=== PATIENT | male | born 2005 | race African-American/Black ===

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

== ENCOUNTER 2023-01-28 07:46 | Emergency (ER) | payer OTHER ==
[~2023-01-28] VITALS: Ht 185.4 cm; Wt 93.9 kg
[2023-01-28 09:27] LABS: BASO # 0.1 10^3/uL (0.0-0.2); BASO % 1.2 % (0.0-1.0); EOS # 0.1 10^3/uL (0.0-0.5); EOS % 2.7 % (0.0-3.0); HEMATOCRIT 43.4 % (42.0-52.0); HEMOGLOBIN 14.4 g/dl (13.5-17.5); LYMPH # 2.3 10^3/uL (1.5-5.0); LYMPH % 47.5 % (24.0-44.0); MEAN CORPUSCULAR HEMOGLOBIN 29.9 pg (27.0-33.0); MEAN CORPUSCULAR HGB CONC 33.2 g/dl (32.0-36.5); MEAN CORPUSCULAR VOLUME 90.2 fl (80.0-96.0); MONO # 0.6 10^3/uL (0.0-0.8); MONO % 11.6 % (2.0-8.0); NEUTROPHILS # 1.8 10^3/uL (1.5-8.5); NEUTROPHILS % 36.2 % (36.0-66.0); PLATELET COUNT, AUTOMATED 237 10^3/uL (150-450); RED BLOOD COUNT 4.81 10^6/uL (4.30-6.10); WHITE BLOOD COUNT 4.8 10^3/uL (4.0-10.0)
[2023-01-28 09:33] LABS: MONO SCRN NEGATIVE (NEGATIVE)
[2023-01-28] MEDS ORDERED: CEPH500C PO (09:59)
[2023-01-28] MEDS ORDERED: CEPHALEXIN 500 MG CAP PO ONE (10:00)
[2023-01-28 10:15] VITALS: BP 156/82
== END 2023-01-28 10:26 | disposition home or self-care (01) ==
LOC: M ED 07:46
DX: J02.9 Acute pharyngitis, unspecified (principal)

== ENCOUNTER 2023-02-23 08:19 | Emergency (ER) | payer OTHER ==
[~2023-02-23] VITALS: Ht 182.9 cm; Wt 92.7 kg
[~2023-02-23 08:19] MED LIST: CEPH500C PO
[2023-02-23 08:21] VITALS: BP 120/77; TEMP 97.8; O2SAT 98
== END 2023-02-23 09:17 | disposition left against medical advice (07) ==
LOC: M ED 08:19
DX: Z53.21 Procedure and treatment not carried out due to patient leaving prior to being seen by health care provider (principal)

== ENCOUNTER 2023-02-24 07:18 | Emergency (ER) | payer OTHER ==
[~2023-02-24] VITALS: Ht 185.4 cm; Wt 91.4 kg
[2023-02-24] MEDS ORDERED: IBUPROFEN 800 MG TAB PO ONE (08:15)
[2023-02-24 11:28] VITALS: BP 156/81; TEMP 97.9; O2SAT 96
== END 2023-02-24 11:28 | disposition home or self-care (01) ==
LOC: M ED 07:18
DX: T07.XXXA Unspecified multiple injuries, initial encounter (principal); Y04.0XXA Assault by unarmed brawl or fight, initial encounter; Y92.89 Other specified places as the place of occurrence of the external cause; Y93.89 Activity, other specified; Y99.8 Other external cause status; M27.2 Inflammatory conditions of jaws; R07.9 Chest pain, unspecified

== ENCOUNTER 2023-03-16 11:42 | Emergency (ER) | payer OTHER ==
[~2023-03-16] VITALS: Ht 185.4 cm; Wt 92.1 kg
[2023-03-16 11:42] VITALS: BP 124/58; TEMP 98; O2SAT 96
[2023-03-16 13:21] LABS: RSV AMPLIFICATION NEGATIVE (NEGATIVE)
[2023-03-16] MEDS ORDERED: IBUPROFEN 800 MG TAB PO ONE (13:50)
[2023-03-16] MEDS ORDERED: BENZ1LOZ9 PO (13:51)
[2023-03-16] MEDS ORDERED: FLUT50SP17 (13:51)
== END 2023-03-16 13:59 | disposition home or self-care (01) ==
LOC: M ED 11:42
DX: J06.9 Acute upper respiratory infection, unspecified (principal); J02.9 Acute pharyngitis, unspecified; Z79.899 Other long term (current) drug therapy

== ENCOUNTER 2023-03-31 06:43 | Emergency (ER) | payer OTHER ==
[~2023-03-31] VITALS: Ht 185.4 cm; Wt 89.1 kg
[2023-03-31 06:43] VITALS: BP 137/82; TEMP 96.6; O2SAT 99
[~2023-03-31 06:43] MED LIST changes: +BENZ1LOZ9 PO; +FLUT50SP17
[2023-03-31] MEDS ORDERED: VALA1TAB5 PO (07:26)
[2023-03-31] MEDS ORDERED: BACI500O59 TOP (07:40)
[2023-03-31 09:40] LABS: GC DNA AMPLIFICATION NEGATIVE (NEGATIVE)
== END 2023-03-31 07:42 | disposition home or self-care (01) ==
LOC: M ED 06:43
DX: N48.5 Ulcer of penis (principal); Z79.899 Other long term (current) drug therapy

== ENCOUNTER 2023-05-11 07:44 | Emergency (ER) | payer OTHER ==
[~2023-05-11] VITALS: Ht 185.4 cm; Wt 92.0 kg
[~2023-05-11 07:44] MED LIST changes: +BACI500O59 TOP; +VALA1TAB5 PO
[2023-05-11] MEDS ORDERED: NS 1,000 ML IV ONE (08:30)
[2023-05-11] MEDS ORDERED: dexAMETHasone 20MG/5ML VIAL IV ONE (08:30)
[2023-05-11] MEDS ORDERED: CLINDAMYCIN 900 MG in IV 1 EA IV ONE (08:30)
[2023-05-11 09:11] LABS: BASO % 1.2 % (0.0-1.0); EOS # 0.3 10^3/uL (0.0-0.5); EOS % 4.8 % (0.0-3.0); HEMATOCRIT 41.6 % (42.0-52.0); HEMOGLOBIN 13.7 g/dl (13.5-17.5); LYMPH # 1.9 10^3/uL (1.5-5.0); LYMPH % 31.8 % (24.0-44.0); MEAN CORPUSCULAR HEMOGLOBIN 29.9 pg (27.0-33.0); MEAN CORPUSCULAR HGB CONC 32.9 g/dl (32.0-36.5); MEAN CORPUSCULAR VOLUME 90.8 fl (80.0-96.0); MONO # 0.8 10^3/uL (0.0-0.8); MONO % 12.9 % (2.0-8.0); PLATELET COUNT, AUTOMATED 239 10^3/uL (150-450); RED BLOOD COUNT 4.58 10^6/uL (4.30-6.10); WHITE BLOOD COUNT 6.1 10^3/uL (4.0-10.0)
[2023-05-11 09:12] LABS: BASO # 0.1 10^3/uL (0.0-0.2)
[2023-05-11 09:24] LABS: RSV AMPLIFICATION NEGATIVE (NEGATIVE)
[2023-05-11 09:29] LABS: ERYTHROCYTE SEDIMENTATION RATE 26 mm/hr (0-15)
[2023-05-11] MEDS ORDERED: ISOVUE-370 76% 100ML VIAL As Ordered ONE (09:43)
[2023-05-11 09:46] LABS: MONO REFLEX EBV COMP NEGATIVE (NEGATIVE)
[2023-05-11 10:40] VITALS: TEMP 97.2
[2023-05-11 11:31] VITALS: O2SAT 99
[2023-05-11] MEDS ORDERED: CLEO150C PO (11:31)
[2023-05-11] MEDS ORDERED: CLEO300C2 PO (11:31)
[2023-05-11] MEDS ORDERED: PRED20TA PO (11:31)
[2023-05-11 11:46] VITALS: BP 109/64
[2023-05-12 13:07] LABS: EBV AB TO NUCLEAR ANTIGEN >600.0 U/mL (0.0-17.9); EBV VIRAL CAPSID AG IgM <36.0 U/mL (0.0-35.9)
== END 2023-05-11 12:01 | disposition home or self-care (01) ==
LOC: M ED 07:44
DX: J02.0 Streptococcal pharyngitis (principal); R59.9 Enlarged lymph nodes, unspecified; Z79.52 Long term (current) use of systemic steroids; Z79.1 Long term (current) use of non-steroidal anti-inflammatories (NSAID)
CPT/HCPCS: 70491; 71046; 80047; 85025; 85652; 86140; 86308; 86664; 86665; 87631; 87880; 93041; 94760; 96365; 96375; 99285; J0737; J1100; Q9967

== ENCOUNTER 2023-05-17 10:49 | Observation (INO) | payer OTHER ==
[~2023-05-17] VITALS: Ht 185.4 cm; Wt 93.6 kg
[~2023-05-17 10:49] MED LIST changes: +CLEO150C PO; +CLEO300C2 PO; +PRED20TA PO
[2023-05-17] MEDS ORDERED: dexAMETHasone 20MG/5ML VIAL IV ONE (13:30)
[2023-05-17] MEDS ORDERED: AMPICILLIN SOD/SULBACTAM SOD 3 GM in D5W MINI-BAG PLUS 100 ML IV ONE (13:30)
[2023-05-17 13:54] LABS: BASO # 0.1 10^3/uL (0.0-0.2); BASO % 1.5 % (0.0-1.0); EOS # 0.2 10^3/uL (0.0-0.5); EOS % 3.3 % (0.0-3.0); HEMATOCRIT 45.8 % (42.0-52.0); HEMOGLOBIN 15.1 g/dl (13.5-17.5); LYMPH # 1.9 10^3/uL (1.5-5.0); LYMPH % 36.3 % (24.0-44.0); MEAN CORPUSCULAR HEMOGLOBIN 30.1 pg (27.0-33.0); MEAN CORPUSCULAR VOLUME 91.4 fl (80.0-96.0); MONO # 0.4 10^3/uL (0.0-0.8); MONO % 7.9 % (2.0-8.0); NEUTROPHILS # 2.5 10^3/uL (1.5-8.5); NEUTROPHILS % 49.1 % (36.0-66.0); PLATELET COUNT, AUTOMATED 337 10^3/uL (150-450); RED BLOOD COUNT 5.01 10^6/uL (4.30-6.10); WHITE BLOOD COUNT 5.2 10^3/uL (4.0-10.0)
[2023-05-17 14:20] LABS: C REACTIVE PROTEIN QUANTITATIV < 0.40 MG/DL (<1.0)
[2023-05-17 14:21] LABS: BLOOD UREA NITROGEN 10 MG/DL (9-23); CARBON DIOXIDE LEVEL 29 MMOL/L (20-31); CHLORIDE LEVEL 104 MMOL/L (98-107); CREATININE FOR GFR 0.99 MG/DL (0.70-1.30); GLUCOSE, FASTING 80 MG/DL (60-100); POTASSIUM SERUM 4.2 MMOL/L (3.5-5.1); SODIUM LEVEL 140 MMOL/L (136-145)
[2023-05-17 14:49] LABS: ERYTHROCYTE SEDIMENTATION RATE 24 mm/hr (0-15)
[2023-05-17] MEDS ORDERED: CEPACOL LOZENGE PO PRN (16:15)
[2023-05-17] MEDS ORDERED: CHLORASEPTIC SPRAY MT PRN (16:15)
[2023-05-17] MEDS ORDERED: NS 1,000 ML IV ONE (16:15)
[2023-05-17] MEDS ORDERED: ACETAMINOPHEN TAB 650MG DOSE (2X325MG) PO PRN (16:15)
[2023-05-17] MEDS ORDERED: NORCO, ANEXSIA 5/325MG TABLET (HYDROcodone/ACETAMINOPHEN) PO PRN (16:15)
[2023-05-17] MEDS: KETOROLAC 30 MG/ML 1ML VIAL IV SCH ×2 (16:32→21:56)
[2023-05-17 16:54] LABS: RSV AMPLIFICATION NEGATIVE (NEGATIVE)
[2023-05-17] MEDS ORDERED: MED REC IN PROGRESS XX SCH (17:20)
[2023-05-17 17:25] VITALS: BP 103/76; TEMP 97.7; O2SAT 99
[2023-05-17] MEDS: LACTOBACILLUS ACIDOPHILUS CAP (BACID) PO SCH ×2 (18:12→21:56)
[2023-05-17] MEDS: NS 1,000 ML IV SCH ×2 (18:12→20:17)
[2023-05-17] MEDS ORDERED: IBUP80TA PO (18:54)
[2023-05-17] MEDS: AMPICILLIN SOD/SULBACTAM SOD 3 GM in D5W MINI-BAG PLUS 100 ML IV SCH (21:56)
[2023-05-17 22:00] VITALS: BP 107/72; TEMP 98.8; O2SAT 97
[2023-05-18] MEDS: dexAMETHasone 20MG/5ML VIAL IV SCH ×2 (00:44→07:55)
[2023-05-18] MEDS: KETOROLAC 30 MG/ML 1ML VIAL IV SCH (04:03)
[2023-05-18] MEDS: AMPICILLIN SOD/SULBACTAM SOD 3 GM in D5W MINI-BAG PLUS 100 ML IV SCH (04:03)
[2023-05-18 06:00] VITALS: BP 101/65; TEMP 97.9; O2SAT 98
[2023-05-18] MEDS ORDERED: AMOX875T2 PO (06:33)
[2023-05-18] MEDS: LACTOBACILLUS ACIDOPHILUS CAP (BACID) PO SCH (07:55)
[2023-05-18] MEDS ORDERED: BACI1CAP PO (09:15)
[2023-05-18] MEDS ORDERED: BICILLIN IM ONE (09:15)
[2023-05-18] MEDS ORDERED: NS 1,000 ML IV ONE (09:15)
[2023-05-18] MEDS ORDERED: PRED5PAK PO (09:18)
[2023-05-18 09:43] LABS: BASO % 0.1 % (0.0-1.0); LYMPH # 1.2 10^3/uL (1.5-5.0); LYMPH % 7.8 % (24.0-44.0); MEAN CORPUSCULAR HEMOGLOBIN 30.1 pg (27.0-33.0); MEAN CORPUSCULAR HGB CONC 33.6 g/dl (32.0-36.5); MEAN CORPUSCULAR VOLUME 89.7 fl (80.0-96.0); MONO # 0.5 10^3/uL (0.0-0.8); MONO % 3.2 % (2.0-8.0); NEUTROPHILS # 13.5 10^3/uL (1.5-8.5); NEUTROPHILS % 88.2 % (36.0-66.0); PLATELET COUNT, AUTOMATED 308 10^3/uL (150-450); WHITE BLOOD COUNT 15.3 10^3/uL (4.0-10.0)
[2023-05-18 09:44] LABS: HEMOGLOBIN 13.1 g/dl (13.5-17.5); RED BLOOD COUNT 4.35 10^6/uL (4.30-6.10)
[2023-05-18 10:06] LABS: C REACTIVE PROTEIN QUANTITATIV < 0.40 MG/DL (<1.0)
[2023-05-18 10:08] LABS: BLOOD UREA NITROGEN 15 MG/DL (9-23); CALCIUM LEVEL 9.3 MG/DL (8.5-10.1); CARBON DIOXIDE LEVEL 24 MMOL/L (20-31); CHLORIDE LEVEL 106 MMOL/L (98-107); CREATININE FOR GFR 0.83 MG/DL (0.70-1.30); GLUCOSE, FASTING 119 MG/DL (60-100); POTASSIUM SERUM 4.5 MMOL/L (3.5-5.1); SODIUM LEVEL 137 MMOL/L (136-145)
[2023-05-18 10:12] LABS: ERYTHROCYTE SEDIMENTATION RATE 16 mm/hr (0-15)
[2023-05-18 10:20] LABS: PROCALCITONIN <0.04 ng/ml
[2023-05-18] MEDS ORDERED: BICILLIN L-A 2,400,000 UNIT/4 ML SYRINGE (PENICILLIN G BENZATINE) IM ONE (12:00)
== END 2023-05-18 12:25 | disposition home or self-care (01) ==
LOC: M ED 10:49 → M ED INP 10:50 → ENRESERV 17:00 → M MSPAV 17:22
PROVIDERS: ADMIT General Practice; ATTEND General Practice
DX: J02.0 Streptococcal pharyngitis (principal); B95.1 Streptococcus, group B, as the cause of diseases classified elsewhere; Z91.148 Patient's other noncompliance with medication regimen for other reason; R21 Rash and other nonspecific skin eruption; F17.290 Nicotine dependence, other tobacco product, uncomplicated
CPT/HCPCS: 36415; 80048; 84145; 85025; 85652; 86140; 87631; 96365; 96366; 96374; 96375; 96376; 99284; J0295; J0561; J1100; J1885

== ENCOUNTER 2023-05-19 10:03 | Emergency (ER) | payer OTHER ==
[~2023-05-19 10:03] MED LIST changes: +AMOX875T2 PO; +BACI1CAP PO; +IBUP80TA PO; +PRED5PAK PO
[2023-05-19 12:46] VITALS: BP 130/67; TEMP 98.1; O2SAT 100
== END 2023-05-19 12:47 | disposition home or self-care (01) ==
LOC: M ED 10:03
DX: J02.0 Streptococcal pharyngitis (principal)

== ENCOUNTER 2023-09-26 15:09 | Emergency (ER) | payer OTHER ==
[~2023-09-26] VITALS: Ht 185.4 cm; Wt 98.3 kg
[~2023-09-26 15:09] MED LIST changes: -FLUT50SP17; +FLUTISP; +FLUTISP NARES; +IBUP-1114 PO; +TRAZ-252 PO
[2023-09-26] MEDS ORDERED: AMOX875T2 PO (16:41)
[2023-09-26 16:49] LABS: RSV AMPLIFICATION NEGATIVE (NEGATIVE)
[2023-09-26 17:13] VITALS: BP 141/92; TEMP 97.4; O2SAT 98
== END 2023-09-26 17:15 | disposition home or self-care (01) ==
LOC: M ED 15:09
DX: J36 Peritonsillar abscess (principal); F17.290 Nicotine dependence, other tobacco product, uncomplicated

== ENCOUNTER 2023-10-01 06:55 | Emergency (ER) | payer OTHER ==
[~2023-10-01] VITALS: Ht 185.4 cm; Wt 99.4 kg
[2023-10-01 09:58] LABS: BASO # 0.1 10^3/uL (0.0-0.2); BASO % 0.9 % (0.0-1.0); EOS # 0.2 10^3/uL (0.0-0.5); EOS % 2.9 % (0.0-3.0); HEMOGLOBIN 14.6 g/dl (13.5-17.5); LYMPH # 2.6 10^3/uL (1.5-5.0); LYMPH % 47.6 % (24.0-44.0); MEAN CORPUSCULAR HEMOGLOBIN 29.8 pg (27.0-33.0); MEAN CORPUSCULAR HGB CONC 33.2 g/dl (32.0-36.5); MEAN CORPUSCULAR VOLUME 89.8 fl (80.0-96.0); MONO # 0.5 10^3/uL (0.0-0.8); MONO % 8.5 % (2.0-8.0); NEUTROPHILS # 2.2 10^3/uL (1.5-8.5); NEUTROPHILS % 39.6 % (36.0-66.0); PLATELET COUNT, AUTOMATED 285 10^3/uL (150-450); WHITE BLOOD COUNT 5.5 10^3/uL (4.0-10.0)
[2023-10-01 10:07] LABS: ERYTHROCYTE SEDIMENTATION RATE 11 mm/hr (0-15)
[2023-10-01 10:27] LABS: C REACTIVE PROTEIN QUANTITATIV < 0.40 MG/DL (<1.0)
[2023-10-01 10:28] LABS: ALBUMIN 3.9 G/DL (3.2-5.2); ALKALINE PHOSPHATASE 95 U/L (46-116); ALT/SGPT 13 U/L (7.0-40); AST/SGOT 14 U/L (<34); BILIRUBIN,DIRECT < 0.1 MG/DL (<0.4); BILIRUBIN,TOTAL 0.3 MG/DL (0.3-1.2); BLOOD UREA NITROGEN 10 MG/DL (9-23); CARBON DIOXIDE LEVEL 27 MMOL/L (20-31); CHLORIDE LEVEL 108 MMOL/L (98-107); CREATININE FOR GFR 1.02 MG/DL (0.70-1.30); GLUCOSE, FASTING 90 MG/DL (60-100); POTASSIUM SERUM 3.8 MMOL/L (3.5-5.1); SODIUM LEVEL 143 MMOL/L (136-145); TOTAL PROTEIN 7.6 G/DL (5.7-8.2)
[2023-10-01] MEDS ORDERED: ISOVUE-370 76% 100ML VIAL As Ordered ONE (10:31)
[2023-10-01] MEDS ORDERED: dexAMETHasone 20MG/5ML VIAL IV ONE (11:15)
[2023-10-01] MEDS ORDERED: AMPICILLIN SOD/SULBACTAM SOD 3 GM in D5W MINI-BAG PLUS 100 ML IV ONE (11:15)
[2023-10-01 11:58] LABS: MONO SCRN NEGATIVE (NEGATIVE)
[2023-10-01] MEDS ORDERED: PRED10TA2 PO (14:13)
[2023-10-01 14:37] VITALS: BP 126/89; TEMP 97.7; O2SAT 98
[2023-10-01 16:06] LABS: CHLAMYDIA DNA AMPLIFICATION NEGATIVE (NEGATIVE); GC DNA AMPLIFICATION NEGATIVE (NEGATIVE)
[2023-10-04 16:12] LABS: EBV AB TO NUCLEAR ANTIGEN >600.0 U/mL (0.0-17.9); EBV VIRAL CAPSID AG IgM <36.0 U/mL (0.0-35.9)
== END 2023-10-01 14:38 | disposition home or self-care (01) ==
LOC: M ED 06:55
DX: J03.90 Acute tonsillitis, unspecified (principal); F17.290 Nicotine dependence, other tobacco product, uncomplicated
CPT/HCPCS: 70491; 80048; 80076; 83605; 85025; 85652; 86140; 86308; 86664; 86665; 87040; 87486; 87581; 87633; 87798; 87810; 87850; 96365; 96375; 99284; J0295; J1100; Q9967